=== PATIENT | female | born 1995 | race Caucasian/White ===

== ENCOUNTER 2016-09-22 10:41 | Outpatient (CLI) | payer MEDICAID ==
[~2016-09-22] VITALS: Ht 154.9 cm; Wt 103.1 kg
[~2016-09-22 10:41] MED LIST: BACTDS PO; HYDR-3498 PO; ONDA4TAB8 PO
[2016-09-22] MEDS ORDERED: PRENAT PO (11:13)
[2016-09-22 11:14] VITALS: Ht 154.9 cm; Wt 103.1 kg
--- NOTE | 2016-09-22 11:51 | RADRPT ---
PROCEDURE: US biophysical profile. CLINICAL INDICATION: well-being. TECHNIQUE: Multiple sonographic images of the uterus were obtained. The images were revi ewed on a PACS workstation. COMPARISON: No prior studies are available for comparison. FINDINGS: There is a single live intrauterine gestation. heart rate is 137 beats per minute. The position is cephalic. The placenta is anterior, grade 1. The ALLEN is 15.6 cm. Breathing Movement: 2 Gross Body Movement: 2 Tone: 2 Qualitative Amniotic Fluid Volume: 2 TOTAL: 8 IMPRESSION: 1. Single viable intrauterine gestation. 2. Biophysical profile = 03/22. 3. ALLEN = 15.6 cm. RPTAT: QQ .Sol Maria MD, MD Date Time Electronically viewed and signed by .Sol Maria MD, MD on 09/22/2016 11:50 .N/
== END 2016-09-22 12:20 | disposition home or self-care (01) ==
LOC: OBT 10:41 → L-D 10:42 → OBT 12:20
PROVIDERS: ATTEND Obstetrics & Gynecology
DX: O36.8130 Decreased fetal movements, third trimester, not applicable or unspecified (principal); Z3A.00 Weeks of gestation of pregnancy not specified
CPT/HCPCS: 36415; 76818; Z7500; G0463

== ENCOUNTER 2016-11-17 22:08 | Outpatient (CLI) | payer MEDICAID ==
[~2016-11-17] VITALS: Ht 152.4 cm; Wt 113.9 kg
[~2016-11-17 22:08] MED LIST changes: -BACTDS PO; -HYDR-3498 PO; -ONDA4TAB8 PO; +PRENAT PO
[2016-11-17 22:31] VITALS: BP 130/70; PULSE 112; RESP 18; Ht 152.4 cm; Wt 113.9 kg
[2016-11-17] MEDS ORDERED: GUAIFENESIN/CODEINE 5ML CUP PO ONE (23:30)
[2016-11-17] MEDS ORDERED: ACETAMINOPHEN 500 MG TAB PO ONE (23:38)
[2016-11-17] MEDS ORDERED: ALBUTEROL 0.083% (NEB) 2.5 MG/3 ML AMP HHN ONE (23:38)
[2016-11-17] MEDS ORDERED: ALBUTEROL 0.5% (NEB) 2.5 MG/0.5 ML AMP INH SCH (23:45)
--- NOTE | 2016-11-18 01:45 | RADRPT ---
PROCEDURE: ULTRASOUND BIOPHYSICAL PROFILE CLINICAL INDICATION: 21-year-old female with spotting for viability. TECHNIQUE: Multiple sonographic images were obtained in order to perform a biophysical profile The images were reviewed on a PACS workstation. COMPARISON: Ultrasound biophysical profile September 22, 2016. FINDINGS: There is a single viable intrauterine gestation. There is a vertex presentation. Cardiac activity i s present at 148 beats per minute. The placenta is anterior. The results of the biophysical profile are as follows: breathing movement = 2/2 Gross body movement = 2/2 tone = 2/2 Qualitative amniotic fluid volume = 2/2 Amniotic fluid index equals 9.1 cm. This yields a biophysical profile score of 8/8. IMPRESSION: Biophysical profile score is 8/8. .Harjinder Walker MD, MD Date Time Electronically viewed and signed by .Harjinder Walker MD, MD on 11/18/2016 01:45 .M/
--- NOTE | 2016-11-18 03:37 | TRIAGE ---
OB Triage Datetime Report Generated by CPN: 11/18/2016 03:37 Datetime: 11/18/2016 01:54 Vaginal Exam Dilatation (cms): 1.5 Effacement (%): 70 Station: -3 Exam By: BILLIE Vaginal Bleeding: None Cervix, Consistency: Moderate Cervix, Position: Midposition Datetime: 11/18/2016 01:00 Stage of : OB Triage Labor Evaluation Frequency: IRREG Monitor Mode: External Duration (sec)2399: 50-70 Quality: Mild Pattern: Normal: <= 5 Contractions in 10 Minutes Resting Tone [place]: Relaxed Heart Rate FHR Baseline Rate: 140 Monitor Mode: External US Variability: Moderate 6-25 bpm Accelerations: 15X15 Decelerations: None Category: Category I Datetime: 11/18/2016 00:00 Stage of : OB Triage Labor Evaluation Frequency: IRREG Monitor Mode: External Duration (sec)2399: 50-70 Quality: Mild Pattern: Normal: <= 5 Contractions in 10 Minutes Resting Tone [place]: Relaxed Heart Rate FHR Baseline Rate: 140 Monitor Mode: External US Variability: Moderate 6-25 bpm Accelerations: 15X15 Decelerations: None Category: Category I Datetime: 11/17/2016 23:00 Stage of : OB Triage Temperature Route: Oral Labor Evaluation Frequency: IRREG Monitor Mode: External Duration (sec)2399: 50-70 Quality: Mild Pattern: Normal: <= 5 Contractions in 10 Minutes Resting Tone [place]: Relaxed Heart Rate FHR Baseline Rate: 140 Monitor Mode: External US Variability: Moderate 6-25 bpm Accelerations: 15X15 Decelerations: None Category: Category I Pain Assessment Pain Scale: 3 Pain Presence: Intermittent Pain Type: Cramping Pain Location: Abdomen Pain Relief Measures: Comfort Measures Datetime: 11/17/2016 22:42 Vaginal Exam Dilatation (cms): 1.5 Effacement (%): 80 Station: -3 Exam By: BILLIE Vaginal Bleeding: None Cervix, Consistency: Soft Cervix, Position: Midposition Datetime: 11/17/2016 22:38 Time of Arrival: 11/17/2016 22:09 EGA: 37.2 Arrived By: Ambulatory Arrived From: Home Chief Complaint: SPOTTING AND CRAMPING SINCE 11/16/16 AT 1000 Movement: Present Contractions: Irregular Contractions: Q HR Rupture of Membranes: Denies Vaginal Discharge: Denies Recent Sexual Intercouse: Denies Abdominal Trauma: Not Applicable Time Provider Notified: 11/17/2016 23:20 Provider Notified: CASSIE Initial Plan: EFM, ASSESSMENT, CALL MD FOR ORDERS Datetime: 11/17/2016 22:30 Assessment Type: Triage Maternal Assessment Level of Consciousness: Fully Conscious DTR's/Clonus: DTRs 2+; No Clonus Headache: Denies Blurred Vision: No Respiratory Effort: Unlabored; Regular Rhythm; Equal Expansion Breath Sounds, Left: COUGH Nausea/Vomiting: Denies RUQ Epigastric Pain: Denies Facial Edema: None Fall Risk Assessment History of Falling: (0) No Secondary Diagnosis: (0) No Ambulatory Aid: (0) Bedrest/Nurse Assist IV Therapy: (0) No Gait: (0) Normal/Bedrest/Immobile Mental Status: (0) Oriented to Own Ability Fall Score: 0 Fall Risk Score Definition: No Risk: No action required Datetime: 09/22/2016 12:10 Stage of : OB Triage Datetime: 09/22/2016 11:40 EGA: 29.2 Datetime: 09/22/2016 11:15 Stage of : OB Triage Datetime: 09/22/2016 11:01 Stage of : OB Triage Assessment Type: Triage EGA: 29.2 Maternal Assessment Level of Consciousness: Fully Conscious DTR's/Clonus: DTRs 2+; No Clonus Headache: Denies Blurred Vision: No Respiratory Effort: Unlabored; Regular Rhythm; Equal Expansion Breath Sounds, Left: Clear and Equal Breath Sounds, Right: Clear and Equal Nausea/Vomiting: Denies RUQ Epigastric Pain: Denies Lower Extremities Edema: None Degree: None Upper Extremities Edema: None Degree: None Facial Edema: None Temperature Route: Axillary Fall Risk Assessment History of Falling: (0) No Secondary Diagnosis: (0) No Ambulatory Aid: (0) Bedrest/Nurse Assist IV Therapy: (0) No Gait: (0) Normal/Bedrest/Immobile Mental Status: (0) Oriented to Own Ability Fall Score: 0 Fall Risk Score Definition: No Risk: No action required Labor Evaluation Frequency: 0 Monitor Mode: External Pattern: Normal: <= 5 Contractions in 10 Minutes Resting Tone [place]: Relaxed Heart Rate FHR Baseline Rate: 155 Monitor Mode: External US Variability: Moderate 6-25 bpm Decelerations: None Category: Category I Pain Assessment Pain Scale: 0 Pain Presence: None/Denies Pain Type: N/A Pain Goal: 3 Pain Relief Measures: Comfort Measures Datetime: 09/22/2016 11:00 Time of Arrival: 09/22/2016 10:38 Arrived By: Ambulatory Arrived From: Home Chief Complaint: C/O DFM X 3 DAYS, DENIES UC'S, BLEEDING OR LEAKING OF FLUID Movement: Decreased Contractions: Denies/Absent Rupture of Membranes: Denies Vaginal Bleeding: None Vaginal Discharge: Denies Recent Sexual Intercouse: Denies Abdominal Trauma: Not Applicable Patient Complaints: None Time Provider Notified: 09/22/2016 11:15 Provider Notified: TABATHA Initial Plan: MONITOR, BPP/ALLEN
--- NOTE | 2016-11-18 06:57 | QN ---
Documentation Comment 21-year-old with IUP at 37 weeks and 2 days here today with complaint of cramping. She was noted to have 1.5 cm cervical dilation 80% effaced -3. heart tracing was category 1. She denied any leaking of fluid, vaginal bleeding or leaking of fluid. She reported only small spotting. She denied any complication during her antepartum course. Physical examination: General appearance, alert and oriented 4 patient does not appear to be in any acute distress. Abdomen: Soft, gravid, nontender, no rebound tenderness, no guarding Fundal height consistent with gestational age: NST: Category 1 BPP: 8/8 Patient ambulated and observed for about 2 hour. She did not show any cervical change PROCEDURE: ULTRASOUND BIOPHYSICAL PROFILE CLINICAL INDICATION: 21-year-old female with spotting for viability. TECHNIQUE: Multiple sonographic images were obtained in order to perform a biophysical profile The images were reviewed on a PACS workstation. COMPARISON: Ultrasound biophysical profile September 22, 2016. FINDINGS: There is a single viable intrauterine gestation. There is a vertex presentation. Cardiac activity is present at 148 beats per minute. The placenta is anterior. The results of the biophysical profile are as follows: breathing movement = 2/2 Gross body movement = 2/2 tone = 2/2 Qualitative amniotic fluid volume = 2/2 Amniotic fluid index equals 9.1 cm. This yields a biophysical profile score of 8/8. IMPRESSION: Assessment: IUP at 37 weeks and 2 days Cramping, false labor pain next heart tracing category 1 BPP reassuring Plan:Patient be discharged home Strict labor precaution and kick count discussed with the patient Follow-up with her OB clinic in 1-2 days after discharge from the hospital recommended. TIARA MATTHEWS MD Nov 18, 2016 06:57
== END 2016-11-18 02:14 | disposition home or self-care (01) ==
LOC: OBT 22:08 → L-D 22:09 → OBT 11-18 02:14
PROVIDERS: ATTEND Obstetrics & Gynecology
DX: O26.853 Spotting complicating pregnancy, third trimester (principal); O47.03 False labor before 37 completed weeks of gestation, third trimester; Z3A.37 37 weeks gestation of pregnancy
CPT/HCPCS: 76818; 94664; Z7500; Z7610; G0463

== ENCOUNTER 2016-11-19 16:03 | Outpatient (CLI) | payer MEDICAID ==
[~2016-11-19] VITALS: Ht 152.4 cm; Wt 111.8 kg
[2016-11-19 16:08] VITALS: BP 137/85; PULSE 104; RESP 18
--- NOTE | 2016-11-19 17:31 | RADRPT ---
PROCEDURE: US OB. CLINICAL INDICATION: Size and dates , hypertension TECHNIQUE: Multiple sonographic images of the pelvis and gravid uterus were obtained. The images were reviewed on a PACS workstation. COMPARISON: 11/18/2016 FINDINGS: There is a single viable intrauterine gestation. Cardiac activity is present with 152 beats per min omega. There is a vertex presentation. The placenta is anterior. There is no evidence for an abruption or placenta previa. Measurements were made in order to determine age. The results are as follows: BPD =8.9 cm HC =31.9 cm AC =33.6 cm FL =7.1 cm Estimated gestational age of approximately 36 weeks and 3 days based on ultrasound measurements. Clinical age: 37 weeks and 4 days. The estimated date of delivery is 12/14/16, based on ultrasound measurements. The EFW = 3055 g, 40.8%, based on LMP age. RPTAT: AA IMPRESSION: Single viable intrauterine gestation of approximately 36 weeks and 3 days based on ultrasound measu rements. .Joseph Cano MD, Date Time Electronically viewed and signed by .Joseph Cano MD, on 11/19/2016 17:31 .S/
[2016-11-19 17:42] LABS: ADD SCAN DIFF NO
[2016-11-19 17:46] LABS: ADD UMIC YES; URINE BILIRUBIN (Dip) NEGATIVE (NEGATIVE); URINE BLOOD (Dip) NEGATIVE (NEGATIVE); URINE COLOR LT. YELLOW (YELLOW); URINE GLUCOSE (Dip) NEGATIVE (NEGATIVE); URINE KETONES (Dip) NEGATIVE (NEGATIVE); URINE LEUKOCYTE ESTERASE (Dip) TRACE (NEGATIVE); URINE NITRITE (Dip) NEGATIVE (NEGATIVE); URINE TOTAL PROTEIN (Dip) NEGATIVE (NEGATIVE); URINE UROBILINOGEN (Dip) 0.2 E.U./dL (0.1-1.0)
[2016-11-19 17:51] LABS: BASOPHILS % 0.3 % (0.0-2.0); EOSINOPHILS # 0.4 10^3/ul (0.0-0.5); EOSINOPHILS % 5.6 % (0.0-7.0); HEMATOCRIT 33.2 % (37.0-47.0); HEMOGLOBIN 11.6 g/dl (12.0-16.0); LYMPHOCYTES # 1.6 10^3/ul (0.8-2.9); LYMPHOCYTES % 22.8 % (15.0-51.0); MEAN CORPUSCULAR HEMOGLOBIN 30.2 pg (29.0-33.0); MEAN CORPUSCULAR HGB CONC 34.9 g/dl (32.0-37.0); MEAN CORPUSCULAR VOLUME 86.5 fl (82.0-101.0); MEAN PLATELET VOLUME 10.2 fl (7.4-10.4); MONOCYTE # 0.6 10^3/ul (0.3-0.9); MONOCYTES % 8.5 % (0.0-11.0); NEUTROPHIL # 4.4 10^3/ul (1.6-7.5); PLATELET COUNT 228 10^3/UL (140-415); RED BLOOD COUNT 3.84 10^6/ul (4.20-5.40); RED CELL DISTRIBUTION WIDTH 13.3 % (11.5-14.5); WHITE BLOOD COUNT 7.1 10^3/ul (4.8-10.8)
[2016-11-19 18:02] LABS: ALBUMIN 3.2 g/dl (3.3-4.9); POTASSIUM 3.4 mmol/L (3.5-5.1)
[2016-11-19 18:03] LABS: INR 0.99; PROTIME 13.1 Sec (12.2-14.2)
[2016-11-19 18:03] LABS: BACTERIA,URINE FEW; URINE RBCS 0-2 /HPF (0)
[2016-11-19 18:04] LABS: CREATININE 0.48 mg/dl (0.44-1.00); PARTIAL THROMBOPLASTIN TIME 27.8 Sec (25.0-35.0)
[2016-11-19 18:05] LABS: ALBUMIN/GLOBULIN RATIO 0.94; BILIRUBIN,INDIRECT 0.6 mg/dl (0-1.1); BILIRUBIN,TOTAL 0.6 mg/dl (0.2-1.3); CALCIUM 9.4 mg/dl (8.4-10.2); TOTAL PROTEIN 6.6 g/dl (6.1-8.1); URIC ACID 4.4 mg/dl (3.1-7.9)
--- NOTE | 2016-11-19 18:10 | RADRPT ---
PROCEDURE: US OB biophysical profile. CLINICAL INDICATION: decreased movements, hypertension TECHNIQUE: Multiple sonographic images of the pelvis were obtained. The images were reviewed on a PACS workstation. COMPARISON: 11/18/2016 FINDINGS: There is a single viable intrauterine gestation. Cardiac activity is present with 152 beats per min [place]. There is a vertex presentation. The placenta is anterior. There is no evidence of placental abruption. There is a normal amount of amniotic fluid with an ALLEN = 11.3 cm. Biophysical profile: movement 2/2 tone 2/2. breathing 2/2 ALLEN 2/2 Total 03/22 RPTAT: AA . IMPRESSION: Normal biophysical profile. . .Joseph Cano MD, MD Date Time Electronically viewed and signed by .Joseph Cano MD, MD on 11/19/2016 18:10 .S/
--- NOTE | 2016-11-19 18:57 | TRIAGE ---
OB Triage Datetime Report Generated by CPN: 11/19/2016 18:56 Datetime: 11/19/2016 18:00 Frequency: 0 Monitor Mode: External Pattern: Normal: <= 5 Contractions in 10 Minutes Resting Tone [place]: Relaxed FHR Baseline Rate: 155 Monitor Mode: External US FHR Baseline Changes: No Baseline Change Variability: Moderate 6-25 bpm Accelerations: 15X15 Decelerations: None Category: Category I Pain Scale: 0 Pain Presence: None/Denies Pain Type: N/A Datetime: 11/19/2016 17:00 Frequency: 0 Pattern: Normal: <= 5 Contractions in 10 Minutes Resting Tone [place]: Relaxed FHR Baseline Rate: 145 Monitor Mode: External US FHR Baseline Changes: No Baseline Change Variability: Moderate 6-25 bpm Accelerations: 15X15 Decelerations: None Category: Category I Pain Scale: 0 Pain Presence: None/Denies Pain Type: N/A Datetime: 11/19/2016 16:30 Assessment Type: Triage Datetime: 11/19/2016 16:20 Assessment Type: Triage Level of Consciousness: Fully Conscious DTR's/Clonus: DTRs 2+; No Clonus Headache: Denies Blurred Vision: No Respiratory Effort: Unlabored; Regular Rhythm Breath Sounds, Left: Clear and Equal Breath Sounds, Right: Clear and Equal Nausea/Vomiting: Denies RUQ Epigastric Pain: Denies Lower Extremities Edema: Bilateral Lower Extremities Degree: 2+ Upper Extremities Edema: None Degree: None Facial Edema: None History of Falling: (0) No Secondary Diagnosis: (0) No Ambulatory Aid: (0) Bedrest/Nurse Assist IV Therapy: (0) No Gait: (0) Normal/Bedrest/Immobile Mental Status: (0) Oriented to Own Ability Fall Score: 0 Fall Risk Score Definition: No Risk: No action required Datetime: 11/19/2016 16:15 Pain Scale: 0 Pain Presence: None/Denies Pain Type: N/A Datetime: 11/19/2016 16:06 Time of Arrival: 11/19/2016 16:05 EGA: 37.4 Arrived By: Ambulatory Arrived From: Dr. Farr Chief Complaint: PT PRESENTS TO TRIAGE FROM CLINIC FOR EVALUATION OF PIH Movement: Present Contractions: Denies/Absent Rupture of Membranes: Denies Vaginal Bleeding: None Vaginal Discharge: Denies Recent Sexual Intercouse: Denies Abdominal Trauma: Not Applicable Patient Complaints: None Time Provider Notified: 11/19/2016 16:22 Provider Notified: TABATHA Initial Plan: EFM/PIH WORKUP/BPP/EFW Datetime: 11/17/2016 22:38 EGA: 37.2 Datetime: 11/17/2016 22:30 Fall Score: 0 Fall Risk Score Definition: No Risk: No action required Datetime: 09/22/2016 11:40 EGA: 29.2 Datetime: 09/22/2016 11:01 EGA: 29.2 Fall Score: 0 Fall Risk Score Definition: No Risk: No action required
--- NOTE | 2016-12-19 19:38 | DS ---
Date/Time of Note Date/Time of Note DATE: 12/19/16 TIME: 19:34 Discharge Summary Admission/Discharge Info Admit Date/Time 11/19/16 Discharge Date/Time 11/19/16 Final Diagnosis r/oPIH Patient Condition: Good Procedures pih workup Hx of Present Illness suspected plh Hospital Course good Home Meds Reported Medications Multivit/Min/Fol Ac/Iron/Pren* ( S*) 1 Tab Tab, 1 TAB PO DAILY, TAB 09/22/16 JAVY MAYS MD December 19, 2016 19:38
--- NOTE | 2016-12-28 20:01 | QN ---
Documentation Comment near term suspected plh JAVY MAYS MD December 28, 2016 20:01
== END 2016-11-19 18:38 | disposition home or self-care (01) ==
LOC: OBT 16:03 → L-D 16:04 → OBT 18:38
PROVIDERS: ATTEND Obstetrics & Gynecology
DX: O26.893 Other specified pregnancy related conditions, third trimester (principal); O36.8130 Decreased fetal movements, third trimester, not applicable or unspecified; Z3A.37 37 weeks gestation of pregnancy
CPT/HCPCS: 36415; 76815; 76818; 80053; 81001; 84560; 85025; 85384; 85610; 85730; Z7500; 81003; G0463

== ENCOUNTER 2016-11-25 17:34 | Outpatient (CLI) | payer MEDICAID ==
[2016-11-25 18:14] LABS: ADD SCAN DIFF NO
[2016-11-25 18:16] LABS: BASOPHILS % 0.1 % (0.0-2.0); EOSINOPHILS # 0.1 10^3/ul (0.0-0.5); EOSINOPHILS % 1.5 % (0.0-7.0); HEMATOCRIT 34.6 % (37.0-47.0); HEMOGLOBIN 12.1 g/dl (12.0-16.0); LYMPHOCYTES # 2.1 10^3/ul (0.8-2.9); LYMPHOCYTES % 22.1 % (15.0-51.0); MEAN CORPUSCULAR HEMOGLOBIN 30.2 pg (29.0-33.0); MEAN CORPUSCULAR VOLUME 86.3 fl (82.0-101.0); MEAN PLATELET VOLUME 9.9 fl (7.4-10.4); MONOCYTE # 0.5 10^3/ul (0.3-0.9); MONOCYTES % 5.7 % (0.0-11.0); NEUTROPHIL # 6.6 10^3/ul (1.6-7.5); NEUTROPHILS % 69.9 % (39.0-77.0); PLATELET COUNT 266 10^3/UL (140-415); RED BLOOD COUNT 4.01 10^6/ul (4.20-5.40); RED CELL DISTRIBUTION WIDTH 13.2 % (11.5-14.5); WHITE BLOOD COUNT 9.4 10^3/ul (4.8-10.8)
[2016-11-25 18:26] LABS: ALBUMIN 3.2 g/dl (3.3-4.9)
[2016-11-25 18:27] LABS: POTASSIUM 3.3 mmol/L (3.5-5.1)
[2016-11-25 18:29] LABS: ALBUMIN/GLOBULIN RATIO 0.91; BILIRUBIN,INDIRECT 0.5 mg/dl (0-1.1); BILIRUBIN,TOTAL 0.5 mg/dl (0.2-1.3); CREATININE 0.63 mg/dl (0.44-1.00); TOTAL PROTEIN 6.7 g/dl (6.1-8.1)
[2016-11-25 18:30] LABS: CALCIUM 9.3 mg/dl (8.4-10.2)
--- NOTE | 2016-11-25 18:37 | RADRPT ---
PROCEDURE: US OB. CLINICAL INDICATION: induced hypertension. TECHNIQUE: Multiple sonographic images of the uterus were obtained. The images were revi ewed on a PACS workstation. COMPARISON: No prior studies are available for comparison. FINDINGS: There is a single live intrauterine gestation. heart rate is 144 beats per minute. Measurements were made in order to determine age. The results are as follows: BPD = 8.94 cm. HC = 32.07 cm. AC = 35.30 cm. FL = 7.44 cm. Estimated weight is 3428 +/- 514 grams. LMP growth percentile is 60 %. Menstrual age by ultrasound dates is 37 weeks 3 days. The estimated date of delivery is 12/13/2016. Position is cephalic and placenta is anterior grade II. There is no evidence for an abruption or [place] previa. IMPRESSION: 1. Single live intrauterine gestation of 37 weeks 3 days menstrual age by ultrasound dates. 2. The estimated date of delivery is 12/13/2016. RPTAT: QQ .Christiano Aranda MD, Date Time Electronically viewed and signed by .Christiano Aranda MD, on 11/25/2016 18:36 .R/
--- NOTE | 2016-11-25 18:37 | RADRPT ---
PROCEDURE: US biophysical profile. CLINICAL INDICATION: Decreased motion. induced hypertension. TECHNIQUE: Multiple sonographic images of the uterus were obtained. The images were revi ewed on a PACS workstation. COMPARISON: 11/19/2016. FINDINGS: There is a single live intrauterine gestation. heart rate is 152 beats per minute. The position is cephalic. The placenta is anterior grade II with no abruption or previa. The ALLEN is 13.1 cm. (Normal = 5-20 cm.) Breathing Movement: 2 Gross Body Movement: 2 Tone: 2 Qualitative Amniotic Fluid Volume: 2 TOTAL: 8 IMPRESSION: 1. The biophysical score is 8/8. RPTAT: QQ .Christiano Aranda MD, MD Date Time Electronically viewed and signed by .Christiano Aranda MD, on 11/25/2016 18:37 .R/
[2016-11-25 18:38] LABS: URINE COLOR YELLOW (YELLOW); URINE GLUCOSE (Dip) NEGATIVE (NEGATIVE); URINE TOTAL PROTEIN (Dip) 2+ (NEGATIVE)
[2016-11-25 18:39] LABS: ADD UMIC YES; URINE BILIRUBIN (Dip) 1+ (NEGATIVE); URINE BLOOD (Dip) NEGATIVE (NEGATIVE); URINE KETONES (Dip) TRACE (NEGATIVE); URINE LEUKOCYTE ESTERASE (Dip) NEGATIVE (NEGATIVE); URINE NITRITE (Dip) NEGATIVE (NEGATIVE); URINE UROBILINOGEN (Dip) 1.0 E.U./dL (0.1-1.0)
[2016-11-25 18:42] LABS: BACTERIA,URINE FEW; ICTOTEST NEGATIVE (NEGATIVE); MUCUS,URINE MODERATE; SQUAMOUS EPITHELIAL CELL,UR MODERATE; URINE RBCS 0-2 /HPF (0)
--- NOTE | 2016-11-25 21:05 | PN ---
Date/Time of Note Date/Time of Note DATE: 11/25/16 TIME: 20:56 OB Subjective Subjective Subjective sent from clinic for PIH work up since BP at clinic high and poss induction if necessary no subjective symptoms OB Objective Objective Objective BP 122/68, 133/74, 134/80 no significant elevation of BP compare to Bp at clinic PIH lab all wnl except urine protein ++ ext =+ pretibial edema efw 3428 placenta grade II teressa 13.1 bpp 8/8 nst reactive OB Assessment/Plan Other Assessment: IUP 38w3d R/o PIH Other plan: 24hr urine protein RTH tomorrow ANAID RAZO MD Nov 25, 2016 21:05
--- NOTE | 2016-11-25 21:19 | TRIAGE ---
OB Triage Datetime Report Generated by CPN: 11/25/2016 21:19 Datetime: 11/25/2016 20:00 Labor Evaluation Frequency: 0 Monitor Mode: External Pattern: Normal: <= 5 Contractions in 10 Minutes Heart Rate FHR Baseline Rate: 155 Monitor Mode: External US FHR Baseline Changes: No Baseline Change Variability: Moderate 6-25 bpm Accelerations: 15X15 Decelerations: None Category: Category I Datetime: 11/25/2016 19:33 Assessment Type: Triage Maternal Assessment Level of Consciousness: Fully Conscious DTR's/Clonus: DTRs 2+; No Clonus Headache: Denies Blurred Vision: No Respiratory Effort: Unlabored; Regular Rhythm; Equal Expansion Breath Sounds, Left: Clear and Equal Breath Sounds, Right: Clear and Equal Nausea/Vomiting: Denies RUQ Epigastric Pain: Denies Facial Edema: None Fall Risk Assessment History of Falling: (0) No Secondary Diagnosis: (0) No Ambulatory Aid: (0) Bedrest/Nurse Assist IV Therapy: (0) No Gait: (0) Normal/Bedrest/Immobile Mental Status: (0) Oriented to Own Ability Fall Score: 0 Fall Risk Score Definition: No Risk: No action required Datetime: 11/25/2016 19:12 Comments: PATEINT REPOSITONED FROM SIDE LYING TO SEMI- FOWLERS Datetime: 11/25/2016 19:11 Comments: LOSS OF CONTACT Datetime: 11/25/2016 18:40 Stage of : OB Triage Labor Evaluation Frequency: 0 Monitor Mode: External Resting Tone [place]: Relaxed Heart Rate FHR Baseline Rate: 155 Variability: Moderate 6-25 bpm Accelerations: 15X15 Decelerations: None Category: Category I Pain Presence: None/Denies Pain Type: N/A Datetime: 11/25/2016 18:38 Time of Arrival: 11/25/2016 17:20 EGA: 38.3 Arrived By: Ambulatory Arrived From: Dr. Farr Chief Complaint: SENT FROM CLINIC FOR PIH WORK UP Movement: Present Rupture of Membranes: Denies Vaginal Bleeding: None Vaginal Discharge: Denies Recent Sexual Intercouse: Denies Abdominal Trauma: Not Applicable Patient Complaints: None Additional Patient Complaints: PIH WORK UP, BPP/AFR/, EFW Time Provider Notified: 11/25/2016 19:01 Provider Notified: DR. MAYS Initial Plan: EFMX2, CMP, URIC ACID, UA CMP, EFW, BPP/ALLEN Datetime: 11/25/2016 17:30 Stage of : OB Triage Assessment Type: Triage Maternal Assessment Level of Consciousness: Fully Conscious DTR's/Clonus: DTRs 2+; No Clonus Headache: Denies Blurred Vision: No Respiratory Effort: Unlabored; Regular Rhythm; Equal Expansion Breath Sounds, Left: Clear and Equal Breath Sounds, Right: Clear and Equal Nausea/Vomiting: Denies RUQ Epigastric Pain: Denies Facial Edema: None Temperature Route: Axillary Fall Risk Assessment History of Falling: (0) No Secondary Diagnosis: (0) No Ambulatory Aid: (0) Bedrest/Nurse Assist IV Therapy: (0) No Gait: (0) Normal/Bedrest/Immobile Mental Status: (0) Oriented to Own Ability Fall Score: 0 Fall Risk Score Definition: No Risk: No action required Monitor Mode: External Heart Rate FHR Baseline Rate: 155 Monitor Mode: External US Variability: Moderate 6-25 bpm Accelerations: 15X15 Decelerations: None Category: Category I Pain Assessment Pain Scale: 0 Pain Presence: None/Denies Pain Type: N/A Datetime: 11/19/2016 16:20 Fall Score: 0 Fall Risk Score Definition: No Risk: No action required Datetime: 11/19/2016 16:06 EGA: 37.4 Datetime: 11/17/2016 22:38 EGA: 37.2 Datetime: 11/17/2016 22:30 Fall Score: 0 Fall Risk Score Definition: No Risk: No action required Datetime: 09/22/2016 11:40 EGA: 29.2 Datetime: 09/22/2016 11:01 EGA: 29.2 Fall Score: 0 Fall Risk Score Definition: No Risk: No action required
== END 2016-11-25 20:40 | disposition home or self-care (01) ==
LOC: L-D 17:34 → OBT 17:34
PROVIDERS: ATTEND Obstetrics & Gynecology
DX: O13.3 Gestational [pregnancy-induced] hypertension without significant proteinuria, third trimester (principal); Z3A.38 38 weeks gestation of pregnancy
CPT/HCPCS: 36415; 76815; 76818; 80053; 81001; 84560; 85025; Z7500; 81003; G0463

== ENCOUNTER 2016-11-27 10:34 | Inpatient (IN) | payer MEDICAID ==
[~2016-11-27] VITALS: Ht 152.4 cm; Wt 110.8 kg
[2016-11-27 11:11] VITALS: BP 125/72; PULSE 81; RESP 18
--- NOTE | 2016-11-27 11:37 | HP ---
Date/Time of Note Date/Time of Note DATE: 11/27/16 TIME: 11:29 OB - History Hx of Present Free Text/Dictation 21yo G1 at 38+5 with elevated BP at last clinic visit on 11/25, now returning to drop off 24hr urine collection. Pt doing well. Reports normal FM, denies LOF, VB , UCs, headache, visual changes or RUQ pain. Estimated Due Date: Dec 06, 2016 : 1 Care: Good Care Abnormal Ultrasound Findings: [place] noted on US Obstetrical Complications: Pre-eclampsia Medical Complications: Respiratory (Asthma- last inhaler use 1wk ago) Past Family/Social History * Past Medical, Surgical, Family and Obstetric Histories reviewed from chart. Blood Type: O+ Rubella: immune RPR/VDRL: Negative GBS Status: Negative HBsAG: Negative OB Admission Exam Vital Signs Vital Signs Vital Signs Date Time Temp Pulse Resp B/P Pulse Ox O2 Delivery O2 Flow Rate FiO2 11/27/16 11:11 98.4 81 18 125/72 Room Air BP 124/73, 128/77, 150/86 Physical Exam HEENT: WNL Heart: Rhythm Normal Lungs: Clear Abdomen: WNL (gravid, nontender) Extremities: Edema (1+) Reflexes: Normal Membranes: Intact Heart Rate: 140's Accelerations: Accelerations Present Decelerations: No Decelerations Varibility: Moderate Contractions on Admission: None OB Assessment/Plan Other Assessment: Preeclampsia without severe features Term >37wks GA Reassuring FWB Plan: Induction Other plan: 1)PreEclampsia- Given pt has BP >140/90 on two occasions more than 4hrs apart along with 530mg protein on 24hr urine collection, pt rules in for PreEclampsia. Remains asymptomatic. Will repeat PreE labs on admission, although based on BPs, sxs and prior labs, at this time pt does not meet criteria for severe. Since GA is >37wks, recommend admission for IOL to which pt agrees. Will defer Magnesium Sulfate for seizure ppx now, however discussed with pt that should she meet criteria for preeclampsia with severe features, Magnesium Sulfate would be strongly recommended given increased seizure risk. Pt amenable to Magnesium Sulfate if needed. 2)FWB- Reactive NST. CEFM 3)ID- BOWI. GBS negative. Pt without indications for GBS ppx. 4)Pain- Reviewed options for pain management. Pt will decide as labor progresses 5)Asthma- Albuterol MDI prn Questions answered to pt and her partner's satisfaction. REYES PAZ MD Nov 27, 2016 11:37
[2016-11-27 11:49] LABS: ADD UMIC YES; URINE BILIRUBIN (Dip) NEGATIVE (NEGATIVE); URINE BLOOD (Dip) NEGATIVE (NEGATIVE); URINE COLOR YELLOW (YELLOW); URINE GLUCOSE (Dip) NEGATIVE (NEGATIVE); URINE KETONES (Dip) NEGATIVE (NEGATIVE); URINE LEUKOCYTE ESTERASE (Dip) TRACE (NEGATIVE); URINE NITRITE (Dip) NEGATIVE (NEGATIVE); URINE TOTAL PROTEIN (Dip) 1+ (NEGATIVE); URINE UROBILINOGEN (Dip) 1.0 E.U./dL (0.1-1.0)
[2016-11-27 12:12] LABS: URINE RBCS NONE SEEN /HPF (0)
[2016-11-27 12:13] LABS: BACTERIA,URINE FEW; SQUAMOUS EPITHELIAL CELL,UR FEW
[2016-11-27 13:28] LABS: SCRET 0.47 mg/dl (0.44-1.00)
[2016-11-27] MEDS ORDERED: OXYTOCIN 30 UNITS/LR 500 ML IV SCH (14:00)
[2016-11-27] MEDS ORDERED: BUTORPHANOL 2 MG INJ IV PRN (14:00)
[2016-11-27] MEDS ORDERED: LIDOCAINE 1% (MPF) 30 ML INJ INJ PRN (14:00)
[2016-11-27] MEDS ORDERED: CARBOPROST 250 MCG INJ IM PRN (14:00)
[2016-11-27] MEDS ORDERED: METHYLERGONOVINE 0.2 MG INJ IM PRN (14:00)
[2016-11-27] MEDS ORDERED: MISOPROSTOL 200 MCG TAB PR PRN (14:00)
[2016-11-27] MEDS ORDERED: IBUPROFEN 600 MG TAB PO PRN (14:00)
[2016-11-27] MEDS ORDERED: OXYTOCIN 30 UNITS/LR 500 ML IV PRN (14:00)
[2016-11-27] MEDS ORDERED: DINOPROSTONE 10 MG VAG SUPP VAG ONE ×2 (14:00→14:30)
--- NOTE | 2016-11-27 14:25 | TRIAGE ---
OB Triage Datetime Report Generated by CPN: 11/27/2016 14:25 Datetime: 11/27/2016 14:14 Labor Evaluation Frequency: 0 Monitor Mode: External Pattern: Normal: <= 5 Contractions in 10 Minutes Resting Tone Modale: Relaxed Heart Rate FHR Baseline Rate: 145 FHR Baseline Changes: No Baseline Change Variability: Moderate 6-25 bpm Accelerations: 15X15 Datetime: 11/27/2016 14:00 Labor Evaluation Frequency: 0 Monitor Mode: External Quality: Mild Pattern: Normal: <= 5 Contractions in 10 Minutes Resting Tone Modale: Relaxed Heart Rate FHR Baseline Rate: 145 FHR Baseline Changes: No Baseline Change Variability: Moderate 6-25 bpm Accelerations: 15X15 Decelerations: None Category: Category I Datetime: 11/27/2016 13:00 Labor Evaluation Frequency: 0 Monitor Mode: External Pattern: Normal: <= 5 Contractions in 10 Minutes Resting Tone Modale: Relaxed Heart Rate FHR Baseline Rate: 145 FHR Baseline Changes: No Baseline Change Variability: Moderate 6-25 bpm Accelerations: 15X15 Decelerations: None Datetime: 11/27/2016 12:00 Labor Evaluation Frequency: 0 Monitor Mode: External Quality: Mild Pattern: Normal: <= 5 Contractions in 10 Minutes Resting Tone Modale: Relaxed Heart Rate FHR Baseline Rate: 145 FHR Baseline Changes: No Baseline Change Variability: Moderate 6-25 bpm Accelerations: 15X15 Decelerations: None Category: Category I Pain Assessment Pain Scale: 0 Pain Presence: None/Denies Pain Type: N/A Datetime: 11/27/2016 11:03 Time of Arrival: 11/27/2016 10:30 EGA: 38.5 Arrived By: Ambulatory Arrived From: Home Chief Complaint: DROP OFF 24 HOUR URINE COLLECTION Movement: Present Contractions: Denies/Absent Rupture of Membranes: Denies Vaginal Bleeding: None Vaginal Discharge: Denies Abdominal Trauma: Not Applicable Patient Complaints: None Time Provider Notified: 11/27/2016 11:18 Provider Notified: DR. PAZ Initial Plan: EFM x2, 24 HOUR URINE SENT TO LAB, SERIAL BP'S, UA Datetime: 11/27/2016 11:02 Stage of : OB Triage Assessment Type: Triage Maternal Assessment Level of Consciousness: Fully Conscious Headache: Denies Blurred Vision: No Respiratory Effort: Unlabored; Regular Rhythm; Equal Expansion Breath Sounds, Left: Clear and Equal Breath Sounds, Right: Clear and Equal Nausea/Vomiting: Denies RUQ Epigastric Pain: Denies Facial Edema: None Temperature Route: Oral Fall Risk Assessment History of Falling: (0) No Secondary Diagnosis: (0) No Ambulatory Aid: (0) Bedrest/Nurse Assist IV Therapy: (0) No Gait: (0) Normal/Bedrest/Immobile Mental Status: (0) Oriented to Own Ability Fall Score: 0 Fall Risk Score Definition: No Risk: No action required Pain Assessment Pain Scale: 0 Pain Presence: None/Denies Pain Type: N/A Datetime: 11/25/2016 20:01 Stage of : OB Triage Datetime: 11/25/2016 19:33 Fall Score: 0 Fall Risk Score Definition: No Risk: No action required Datetime: 11/25/2016 18:38 EGA: 38.3 Datetime: 11/25/2016 17:30 Fall Score: 0 Fall Risk Score Definition: No Risk: No action required Datetime: 11/19/2016 16:20 Fall Score: 0 Fall Risk Score Definition: No Risk: No action required Datetime: 11/19/2016 16:06 EGA: 37.4 Datetime: 11/17/2016 22:38 EGA: 37.2 Datetime: 11/17/2016 22:30 Fall Score: 0 Fall Risk Score Definition: No Risk: No action required Datetime: 09/22/2016 11:40 EGA: 29.2 Datetime: 09/22/2016 11:01 EGA: 29.2 Fall Score: 0 Fall Risk Score Definition: No Risk: No action required
[2016-11-27] MEDS: LACTATED RINGER'S 1,000 ML IV SCH ×2 (14:50→22:08)
[2016-11-27 15:25] LABS: ADD SCAN DIFF NO
[2016-11-27 15:26] LABS: BASOPHILS % 0.2 % (0.0-2.0); EOSINOPHILS # 0.1 10^3/ul (0.0-0.5); EOSINOPHILS % 1.4 % (0.0-7.0); HEMATOCRIT 35.5 % (37.0-47.0); HEMOGLOBIN 12.5 g/dl (12.0-16.0); LYMPHOCYTES # 2.3 10^3/ul (0.8-2.9); LYMPHOCYTES % 23.1 % (15.0-51.0); MEAN CORPUSCULAR HEMOGLOBIN 30.2 pg (29.0-33.0); MEAN CORPUSCULAR HGB CONC 35.2 g/dl (32.0-37.0); MEAN CORPUSCULAR VOLUME 85.7 fl (82.0-101.0); MEAN PLATELET VOLUME 10.1 fl (7.4-10.4); MONOCYTE # 0.6 10^3/ul (0.3-0.9); MONOCYTES % 6.5 % (0.0-11.0); NEUTROPHIL # 6.7 10^3/ul (1.6-7.5); PLATELET COUNT 270 10^3/UL (140-415); RED BLOOD COUNT 4.14 10^6/ul (4.20-5.40); RED CELL DISTRIBUTION WIDTH 13.2 % (11.5-14.5); WHITE BLOOD COUNT 9.8 10^3/ul (4.8-10.8)
[2016-11-27 15:36] LABS: ALBUMIN 3.3 g/dl (3.3-4.9); POTASSIUM 3.7 mmol/L (3.5-5.1)
[2016-11-27 15:37] LABS: INR 0.9; PARTIAL THROMBOPLASTIN TIME 25.8 Sec (25.0-35.0); PROTIME 12.1 Sec (12.2-14.2); PT RATIO 0.9
[2016-11-27 15:38] LABS: CREATININE 0.47 mg/dl (0.44-1.00)
[2016-11-27 15:39] LABS: ALBUMIN/GLOBULIN RATIO 0.91; BILIRUBIN,INDIRECT 0.5 mg/dl (0-1.1); BILIRUBIN,TOTAL 0.5 mg/dl (0.2-1.3); TOTAL PROTEIN 6.9 g/dl (6.1-8.1); URIC ACID 4.9 mg/dl (3.1-7.9)
[2016-11-27 15:40] LABS: CALCIUM 9.5 mg/dl (8.4-10.2)
[2016-11-27] MEDS ORDERED: ALBUTEROL 18 GM INHALER INH PRN (17:00)
[2016-11-27] MEDS ORDERED: LACTATED RINGER'S 1,000 ML IV PRN (20:00)
[2016-11-28] VITALS (7 sets, daily range): BP systolic 126–141; BP diastolic 62–82; PULSE 83–127; RESP 19–20
[2016-11-28] MEDS ORDERED: FENTAnyl 2MCG/ML-ROPIV 0.2% 100 ML ONE (00:59)
[2016-11-28] MEDS: LACTATED RINGER'S 1,000 ML IV SCH ×2 (03:30→10:59)
[2016-11-28] MEDS ORDERED: ONDANSETRON 4 MG INJ IV PRN ×2 (08:00→17:30)
[2016-11-28] MEDS ORDERED: DIPHENHYDRAMINE 50 MG INJ IV PRN (08:00)
[2016-11-28] MEDS ORDERED: FENTAnyl 2MCG/ML-ROPIV 0.2% 100 ML BAG EPI SCH (08:00)
[2016-11-28] MEDS ORDERED: NALOXONE (0.4 MG/ML) INJ IV PRN (08:00)
[2016-11-28] MEDS ORDERED: MISOPROSTOL 200 MCG TAB ONE ×2 (12:15)
[2016-11-28] MEDS: OXYTOCIN 30 UNITS/LR 500 ML IV SCH ×4 (12:18→21:04)
--- NOTE | 2016-11-28 12:26 | LDN ---
Date/Time of Note Date/Time of Note DATE: 11/28/16 TIME: 12:21 Delivery Summary Normal spontaneous vaginal delivery of a baby girl from OA position shoulders delivered without any difficulties rest of the baby's body followed cord was clamped after stopped pulsation, placenta spontaneous expulsion inspected complete, estimated blood loss 250-300 cc Weeks of Gestation 38 weeks 5 days in active labor Placenta Delivered: Spontaneously Meconium: none Episiotomy: No Anesthesia type: Epidural Estimated blood loss: 300 Sponge & Needle done & correct: Yes All needle counts correct: Yes Any foreign bodies felt in the: No Problems: Infant Delivery Information Sex Sex: female Apgars 1 Minute: 9 5 Minute: 9 Suctioning Nose & mouth suctioned at juan alberto: Yes Delee suction performed: No Umbilical Cord Umbilical cord with: 3 Vessels Cord presentations: no nuchal cord Cord Blood was obtained: Yes Mother & Baby Disposition Disposition Baby and mother both had satisfactory condition after the delivery. Mom & Baby to Maternity; Good: Yes Baby to NICU: No JAVY MAYS MD Nov 28, 2016 12:26
[2016-11-28] MEDS ORDERED: AMPICILLIN 2 GM/NS (PMX) 100 ML ONE (12:30)
[2016-11-28] MEDS: AMPICILLIN 2 GM/NS (PMX) 100 ML IVPB SCH ×2 (12:36→18:16)
--- NOTE | 2016-11-28 12:38 | HP ---
Date/Time of Note Date/Time of Note DATE: 11/28/16 TIME: 12:27 OB - History Hx of Present Free Text/Dictation This is 20 years old female 1 para 0 admitted at 38 weeks and 5 days to [facility] for induction of labor due to suspected preeclampsia with elevated blood pressure and over 500 mg of protein in the 24 hours urine, pelvic examination on admission ,cervix 1-1/2 cm 70% effaced vertex at -3 station plan of Cervidil induction was discussed with the patient and she agreed to undergo induction( for -induced hypertension) Chief Complaint: at 38 weeks 5 days her complicated with -induc Estimated Due Date: Dec 06, 2016 : 1 Para: 0 Care: Good Care Ultrasounds: Normal mid trimester US Medical Complications: None Past Family/Social History * Past Medical, Surgical, Family and Obstetric Histories reviewed from chart. Rubella: immune RPR/VDRL: Negative GBS Status: Negative HBsAG: Negative OB Admission Exam Vital Signs Vital Signs Vital Signs Date Time Temp Pulse Resp B/P Pulse Ox O2 Delivery O2 Flow Rate FiO2 11/27/16 11:11 98.4 81 18 125/72 Room Air Physical Exam HEENT: WNL Heart: Rhythm Normal Lungs: Clear, Equal Extremities: Edema Reflexes: Normal Cervical Dilatation: 2cm Effacement: 75% Station: -3 Membranes: Intact Heart Rate: 130's Accelerations: Accelerations Present Decelerations: No Decelerations Varibility: Moderate Contractions on Admission: None Last 72 hours Lab Results CBC & BMP 11/27/16 11:40 11/27/16 14:45 Liver Function Test 11/27/16 14:45 Alanine Aminotransferase (ALT/SGPT) 29 Albumin 3.3 Alkaline Phosphatase 175 H Aspartate Amino Transf (AST/SGOT) 32 Direct Bilirubin 0.00 Total Protein 6.9 OB Assessment/Plan Reason for admission: induction of labor, other (-induced hypertension ) Plan: Induction Induction Method: per Misoprostol Protocol JAVY MAYS MD Nov 28, 2016 12:38
[2016-11-28] MEDS ORDERED: CA GLUCONATE (GM) 10% 10ML INJ IV PRN (14:00)
[2016-11-28] MEDS ORDERED: MAGNESIUM SULFATE 4 GM/100 ML 100 ML IV SCH (14:00)
[2016-11-28] MEDS: MAGNESIUM SULFATE 20 GM/500 ML 500 ML IV SCH (14:27)
[2016-11-28] MEDS ORDERED: LANOLIN 7 GM TUBE TOP PRN (17:30)
[2016-11-28] MEDS ORDERED: WITCH HAZEL/GLYCERIN PAD PR PRN (17:30)
[2016-11-28] MEDS ORDERED: BENZOCAINE 20% 56 ML SPRAY TOP PRN (17:30)
[2016-11-28] MEDS ORDERED: DIBUCAINE 1% 30 GM OINT PR PRN (17:30)
[2016-11-28] MEDS ORDERED: ACETAMINOPHEN/CODEINE #3 TAB PO PRN ×2 (17:30)
[2016-11-28] MEDS ORDERED: ACETAMINOPHEN 325 MG TAB PO PRN (17:30)
[2016-11-28] MEDS ORDERED: OXYCODONE/ASPIRIN (4.88/325) TAB PO PRN ×2 (17:30)
[2016-11-28] MEDS: IBUPROFEN 600 MG TAB PO SCH ×2 (18:00→18:16)
[2016-11-28] MEDS: SENNA/DOCUSATE NA (8.6MG/50MG) TAB PO SCH (21:22)
[2016-11-29] VITALS (14 sets, daily range): BP systolic 111–143; BP diastolic 61–83; PULSE 82–110; RESP 14–20
[2016-11-29] MEDS: IBUPROFEN 600 MG TAB PO SCH ×5 (00:21→23:44)
[2016-11-29] MEDS: AMPICILLIN 2 GM/NS (PMX) 100 ML IVPB SCH ×3 (00:21→11:44)
[2016-11-29] MEDS: OXYTOCIN 30 UNITS/LR 500 ML IV SCH (00:23)
[2016-11-29] MEDS: MAGNESIUM SULFATE 20 GM/500 ML 500 ML IV SCH ×2 (00:25→10:37)
[2016-11-29 07:55] LABS: ADD SCAN DIFF NO
[2016-11-29 07:58] LABS: BASOPHILS % 0.1 % (0.0-2.0); EOSINOPHILS # 0.3 10^3/ul (0.0-0.5); EOSINOPHILS % 1.8 % (0.0-7.0); HEMATOCRIT 29.9 % (37.0-47.0); HEMOGLOBIN 10.5 g/dl (12.0-16.0); LYMPHOCYTES # 2.2 10^3/ul (0.8-2.9); LYMPHOCYTES % 16.1 % (15.0-51.0); MEAN CORPUSCULAR HEMOGLOBIN 30.5 pg (29.0-33.0); MEAN CORPUSCULAR HGB CONC 35.1 g/dl (32.0-37.0); MEAN CORPUSCULAR VOLUME 86.9 fl (82.0-101.0); MEAN PLATELET VOLUME 9.7 fl (7.4-10.4); MONOCYTE # 0.9 10^3/ul (0.3-0.9); MONOCYTES % 6.4 % (0.0-11.0); NEUTROPHIL # 10.4 10^3/ul (1.6-7.5); NEUTROPHILS % 75.1 % (39.0-77.0); PLATELET COUNT 239 10^3/UL (140-415); RED BLOOD COUNT 3.44 10^6/ul (4.20-5.40); RED CELL DISTRIBUTION WIDTH 13.6 % (11.5-14.5); WHITE BLOOD COUNT 13.9 10^3/ul (4.8-10.8)
--- NOTE | 2016-11-29 09:22 | PN ---
Date/Time of Note Date/Time of Note DATE: 11/29/16 TIME: 09:21 OB Subjective Subjective Subjective day 1 Afebrile abdomen soft uterus firm lochia normal extremity normal ambulation recommended plan of possible discharge a.m. discussed Laboratory Tests Test 11/28/16 20:37 11/29/16 02:05 11/29/16 07:45 Magnesium Level 4.2mg/dl 4.5mg/dl 4.9mg/dl White Blood Count 13.910^3/ul Red Blood Count 3.4410^6/ul Hemoglobin 10.5g/dl Hematocrit 29.9% Mean Corpuscular Volume 86.9fl Mean Corpuscular Hemoglobin 30.5pg Mean Corpuscular Hemoglobin Concent 35.1g/dl Red Cell Distribution Width 13.6% Platelet Count 11139^3/UL Mean Platelet Volume 9.7fl Neutrophils % 75.1% Lymphocytes % 16.1% Monocytes % 6.4% Eosinophils % 1.8% Basophils % 0.1% Nucleated Red Blood Cells % 0.0/100WBC Neutrophils # 10.410^3/ul Lymphocytes # 2.210^3/ul Monocytes # 0.910^3/ul Eosinophils # 0.310^3/ul Basophils # 0.010^3/ul Nucleated Red Blood Cells # 0.010^3/ul Current Medications Medications (Trade) Dose Ordered Sig/Yen Route PRN Reason Start Time Stop Time Status Last Admin Dose Admin Lactated Ringer's (Lr) 1,000 ml @ 125 mls/hr Q8H IV 11/27/16 13:58 11/28/16 17:09 DC 11/28/16 10:59 Dinoprostone (Cervidil Vaginal Supp) 10 mg ONCE ONCE VAG 11/27/16 14:00 11/27/16 14:10 DC 11/27/16 16:06 Butorphanol Tartrate (Stadol) 2 mg Q2H PRN IV PAIN 11/27/16 14:00 11/28/16 17:09 DC Lidocaine 30 ml 30 ml ONCE PRN INJ EPISIOTOMY/TEARING 11/27/16 14:00 11/28/16 17:09 DC Oxytocin/Lactated Ringer's 500 ml @ 125 mls/hr ONCE -MAY REPEAT X1 IV 11/27/16 14:00 11/28/16 17:09 DC 11/28/16 12:22 Oxytocin/Lactated Ringer's 500 ml @ 125 mls/hr ONCE IV 11/27/16 14:00 11/28/16 17:09 DC 11/28/16 12:54 Ibuprofen 600 mg 600 mg ONCE PRN PO Mild Pain (Pain Score 1-3) 11/27/16 14:00 11/28/16 17:09 DC 11/28/16 13:26 Lactated Ringer's 1,000 ml @ 2,000 mls/hr Q30M PRN IV PRE-EPIDURAL BOLUS 11/27/16 20:00 11/28/16 17:10 DC Oxytocin/Lactated Ringer's 500 ml @ 0 mls/hr ONCE PRN IV For Hemorrhage Management 11/27/16 14:00 11/28/16 17:10 DC Methylergonovine Maleate (Methergine) 0.2 mg ONCE PRN IM VAGINAL BLEEDING 11/27/16 14:00 11/28/16 17:10 DC Carboprost Tromethamine (Hemabate) 250 mcg ONCE PRN IM VAGINAL BLEEDING 11/27/16 14:00 11/28/16 17:10 DC Misoprostol (Cytotec) 1,000 mcg ONCE PRN GA VAGINAL BLEEDING 11/27/16 14:00 11/27/16 14:28 DC Dinoprostone (Cervidil Vaginal Supp) 10 mg ONCE ONCE VAG 11/27/16 14:30 11/27/16 14:30 DC Albuterol 2 puff 2 puff Q4H RESP THERAPY PRN INH SHORTNESS OF BREATH 11/27/16 17:00 11/28/16 17:09 DC Fentanyl/ Ropivacaine 100 ml @ ud STK-MED ONCE .ROUTE 11/28/16 00:59 11/28/16 01:00 DC Naloxone HCl (Narcan) 0.1 mg Q2M PRN IV FOR RESP RATE 8 OR LESS 11/28/16 08:00 11/28/16 17:09 DC Diphenhydramine HCl (Benadryl) 25 mg Q6H PRN IV ITCHING 11/28/16 08:00 11/28/16 17:09 DC Ondansetron HCl (Zofran Inj) 4 mg Q6H PRN IV NAUSEA AND/OR VOMITING 11/28/16 08:00 11/28/16 17:09 DC Fentanyl/ Ropivacaine 100 ml EPIDURAL INFUSION EPI 11/28/16 08:00 11/28/16 17:09 DC 11/28/16 07:53 Misoprostol (Cytotec) 200 mcg STK-MED ONCE .ROUTE 11/28/16 12:15 11/28/16 12:16 DC Misoprostol 200 mcg 200 mcg STK-MED ONCE .ROUTE 11/28/16 12:15 11/28/16 12:16 DC Ampicillin 100 ml @ 100 mls/hr Q6 IVPB 11/28/16 12:30 11/29/16 05:44 Ampicillin 100 ml @ ud STK-MED ONCE .ROUTE 11/28/16 12:30 11/28/16 12:31 DC Magnesium Sulfate 100 ml @ 200 mls/hr ONCE IV 11/28/16 14:00 11/28/16 14:29 DC 11/28/16 14:03 Magnesium Sulfate (Magnesium Sulfate 20 Gm/500 ml) 500 ml @ 50 mls/hr Q10H IV 11/28/16 14:30 11/29/16 00:25 Calcium Gluconate 1 gm 1 gm ONCE PRN IV FOR MAGNESIUM TOXICITY 11/28/16 14:00 Oxytocin/Lactated Ringer's 500 ml @ 125 mls/hr Q4H IV 11/28/16 17:04 11/29/16 01:03 DC 11/29/16 00:23 Ibuprofen (Motrin) 600 mg Q6 PO 11/28/16 17:30 11/29/16 05:44 Acetaminophen (Tylenol Tab) 650 mg Q4H PRN PO PAIN LEVEL 1-5 11/28/16 17:30 Acetaminophen/ Codeine Phosphate (Tylenol No.3) 1 tab Q4H PRN PO PAIN LEVEL 1-5 11/28/16 17:30 Acetaminophen/ Codeine Phosphate (Tylenol No.3) 2 tab Q4H PRN PO PAIN LEVEL 6-10 11/28/16 17:30 Oxycodone/Aspirin (Percodan) 1 tab Q3H PRN PO PAIN LEVEL 1-5 11/28/16 17:30 Oxycodone/Aspirin (Percodan) 2 tab Q3H PRN PO PAIN LEVEL 6-10 11/28/16 17:30 Ondansetron HCl (Zofran Inj) 4 mg Q6H PRN IV NAUSEA AND/OR VOMITING 11/28/16 17:30 Senna/Docusate Sodium (Senokot-S) 1 tab BID PO 11/28/16 21:00 11/28/16 21:22 [place]/ Glycerin (Tucks Pads) 1 pad BEDSIDE MEDICATION PRN GA HEMORRHOID/EPISIOTMY PAIN 11/28/16 17:30 11/28/16 21:23 Benzocaine (Dermoplast [place]) 1 spray BEDSIDE MEDICATION PRN TOP HEMORRHOID/EPISIOTMY PAIN 11/28/16 17:30 11/28/16 21:23 Dibucaine (Nupercainal) 1 applic BEDSIDE MEDICATION PRN GA HEMORRHOID/EPISIOTMY PAIN 11/28/16 17:30 Lanolin (Cgk-P-Aexvrv) 1 applic BEDSIDE MEDICATION PRN TOP BEDSIDE FOR NANCY TO NIPPLES 11/28/16 17:30 Measles/Mumps/ Rubella Vaccine Live (Mmr Ii Vaccine) 0.5 ml ONCE ONCE SC* 11/30/16 09:00 11/30/16 09:01 JAVY MAYS MD Nov 29, 2016 09:22
[2016-11-29] MEDS: SENNA/DOCUSATE NA (8.6MG/50MG) TAB PO SCH ×2 (10:35→20:40)
[2016-11-30 04:00] VITALS: BP 137/42; PULSE 82; RESP 18
[2016-11-30] MEDS: IBUPROFEN 600 MG TAB PO SCH ×2 (06:14→12:00)
[2016-11-30 08:55] VITALS: BP 141/90; PULSE 88; RESP 20
[2016-11-30] MEDS ORDERED: MEASLES,MUMPS,RUBELLA VACCINE INJ SC* ONE (09:00)
[2016-11-30] MEDS: SENNA/DOCUSATE NA (8.6MG/50MG) TAB PO SCH (09:35)
[2016-11-30 09:45] VITALS: BP 135/88; PULSE 80
--- NOTE | 2016-11-30 14:18 | DS ---
Date/Time of Note Date/Time of Note DATE: 11/30/16 TIME: 14:16 Discharge Summary Admission/Discharge Info Admit Date/Time Nov 27, 2016 at 13:45 Discharge Date/Time November 30, 2016 Final Diagnosis Day 2 post normal vaginal delivery Patient Condition: Good Procedures Normal spontaneous vaginal delivery Hx of Present Illness Term Hospital Course Satisfactory Home Meds Reported Medications Multivit/Min/Fol Ac/Iron/Pren* ( S*) 1 Tab Tab, 1 TAB PO DAILY, TAB 09/22/16 Follow-up Plan Appointment clinic in 2 weeks for check JAVY MAYS MD Nov 30, 2016 14:18
== END 2016-11-30 17:48 | disposition home or self-care (01) | DRG 775 ==
LOC: OBT 10:34 → L-D 10:35 → OBT 13:45 → L-D 13:45 → PP1 11-28 17:03
PROVIDERS: ADMIT Obstetrics & Gynecology; ATTEND Obstetrics & Gynecology
PROC: 10E0XZZ Delivery of Products of Conception, External Approach (ICD-10-PCS; principal; 2016-11-28)
DX: O99.214 Obesity complicating childbirth (principal); Z68.42 Body mass index [BMI] 45.0-49.9, adult; E66.9 Obesity, unspecified; O16.4 Unspecified maternal hypertension, complicating childbirth; O14.94 Unspecified pre-eclampsia, complicating childbirth; Z3A.38 38 weeks gestation of pregnancy; Z37.0 Single live birth
CPT/HCPCS: 36415; 80053; 81001; 81003; 82565; 82575; 83735; 84156; 84560; 85025; 85610; 85730; 86592; 86900; 86901; G0463; J0290; J2590; J3010; J3475; J7120

== ENCOUNTER 2018-05-14 13:10 | Emergency (ER) | END 2018-05-14 16:50 | disposition home or self-care (01) ==

== ENCOUNTER 2019-01-11 12:21 | Emergency (ER) | payer OTHER ==
[~2019-01-11] VITALS: Ht 152.4 cm; Wt 90.0 kg
[~2019-01-11 12:21] MED LIST changes: +FAMO-96 PO
[2019-01-11 12:24] VITALS: Ht 152.4 cm; Wt 90.0 kg
[2019-01-11] MEDS ORDERED: DEXAMETHASONE 10 MG/ML 1 ML INJ IV STA (12:34)
[2019-01-11] MEDS ORDERED: SOD CHLORIDE 0.9% 500 ML IV STA (12:34)
[2019-01-11] MEDS ORDERED: ALBUTEROL 0.5% (NEB) 2.5 MG/0.5 ML AMP INH STA (12:34)
[2019-01-11] MEDS ORDERED: IPRATROPIUM (NEB) 0.5 MG/2.5 ML AMP INH STA (12:34)
[2019-01-11] MEDS ORDERED: MAGNESIUM SULFATE 2 GM/50 ML 50 ML IVPB STA (12:34)
[2019-01-11] MEDS ORDERED: ACETAMINOPHEN 500 MG TAB PO STA (12:41)
[2019-01-11] MEDS ORDERED: KETOROLAC 15 MG INJ IV STA (12:41)
--- NOTE | 2019-01-11 13:02 | ERD ---
ER Documentation Chief Complaint Chief Complaint asthma attack HPI This is a 23-year-old female with a history of asthma, no prior hospitalizations or intubation related to her asthma who presents to the emergency room with 24 hours of symptoms including fevers, cough, congestion. She describes chest discomfort with breathing that is nonpleuritic and associated with a semi- productive cough. Patient states this feels like her asthma but is more severe than asthma exacerbations in the past. Patient denies any back pain or abdo cristal symptoms. ROS All systems reviewed and are negative except as per history of present illness. Medications Home Meds Active Scripts Ibuprofen* (Motrin*) 800 Mg Tab, 800 MG PO Q6H PRN for PAIN AND OR ELEVATED TEMP, #30 TAB Prov:ANABELA SETHI MD 01/11/19 Albuterol Sulfate* (Ventolin HFA*) 18 Gm Hfa.aer.ad, 2 PUFF INHALATION Q4H, #1 INHALER Prov:ANABELA SETHI MD 01/11/19 Reported Medications Albuterol Sulfate* (Ventolin HFA*) 18 Gm Hfa.aer.ad, 2 PUFF INHALATION Q4H, #1 INHALER 01/11/19 Discontinued Reported Medications Multivit/Min/Fol Ac/Iron/Pren* ( S*) 1 Tab Tab, 1 TAB PO DAILY, TAB 09/22/16 Discontinued Scripts Famotidine* (Pepcid*) 20 Mg Tablet, 20 MG PO BID for 30 Days, TAB Prov:JUANA BARRIENTOS PA-C 05/14/18 Allergies Allergies: Coded Allergies: No Known Allergy (Unverified , 01/11/19) PMhx/Soc History of Surgery: No Anesthesia Reaction: No Hx Neurological Disorder: No Hx Respiratory Disorders: Yes (asthma) Hx Cardiac Disorders: No Hx Psychiatric Problems: No Hx Miscellaneous Medical Probl: No Hx Alcohol Use: No Hx Substance Use: No Hx Tobacco Use: No FmHx Family History: No diabetes Physical Exam Vitals Vital Signs Date Temp Pulse Resp B/P (MAP) Pulse Ox O2 O2 Flow FiO2 Time Delivery Rate 01/11/19 100.0 127 22 126/74 100 10.0 16:48 (91) 01/11/19 100.2 139 15:30 01/11/19 150 14:30 01/11/19 100.1 148 26 149/88 100 10.0 13:30 (108) 01/11/19 117 20 94 21 13:03 01/11/19 101.3 148 34 160/103 91 12:24 (122) Physical Exam General: Well developed, well nourished, no acute distress, talking in sethi sentences Head: Normocephalic, atraumatic. Eyes: Pupils equally reactive, EOM intact ENT: Moist mucous membranes Neck: Supple, no lymphadenopathy Respiratory: Wheezing diffusely bilaterally with moderate aeration, subtle increased work of breathing Cardiovascular: RRR, no murmurs, rubs, or gallops Abdominal: Soft, non-tender, non-distended, no peritoneal signs : Deferred MSK: No edema, no unilateral swelling, 5/5 strength Neurologic: Alert and oriented, moving all extremities, normal speech, no focal weakness, no cerebellar signs Skin: No rash Psych: Normal mood Result Diagram: 01/11/19 1240 01/11/19 1240 Results 24 hrs Laboratory Tests Test 01/11/19 12:40 White Blood Count 13.6 10^3/ul Red Blood Count 4.89 10^6/ul Hemoglobin 14.6 g/dl Hematocrit 41.4 % Mean Corpuscular Volume 84.7 fl Mean Corpuscular Hemoglobin 29.9 pg Mean Corpuscular Hemoglobin Concent 35.3 g/dl Red Cell Distribution Width 12.4 % Platelet Count 331 10^3/UL Mean Platelet Volume 9.2 fl Immature Granulocytes % 0.300 % Neutrophils % 84.4 % Lymphocytes % 6.6 % Monocytes % 4.3 % Eosinophils % 4.1 % Basophils % 0.3 % Nucleated Red Blood Cells % 0.0 /100WBC Immature Granulocytes # 0.040 10^3/ul Neutrophils # 11.5 10^3/ul Lymphocytes # 0.9 10^3/ul Monocytes # 0.6 10^3/ul Eosinophils # 0.6 10^3/ul Basophils # 0.0 10^3/ul Nucleated Red Blood Cells # 0.0 10^3/ul Sodium Level 140 mmol/L Potassium Level 3.6 mmol/L Chloride Level 107 mmol/L Carbon Dioxide Level 22 mmol/L Anion Gap 11 Blood Urea Nitrogen 8 mg/dl Creatinine 0.54 mg/dl Est Glomerular Filtrat Rate mL/min > 60 mL/min Glucose Level 126 mg/dl Calcium Level 9.9 mg/dl Current Medications Medications Dose Sig/Yen Start Time Status Last (Trade) Ordered Route PRN Stop Time Admin Dose Reason Admin Sodium 500 ml @ Q1H STAT 01/11/19 DC 01/11/19 Chloride 500 mls/hr IV 12:34 13:08 01/11/19 13:33 Albuterol 15 mg ONCE STAT 01/11/19 DC 01/11/19 (Proventil INH 12:34 13:00 0.5% (Neb)) 01/11/19 12:36 Ipratropium 2 mg ONCE STAT 01/11/19 DC 01/11/19 Homeland INH 12:34 12:59 (Atrovent 01/11/19 12:36 0.02% (Neb)) 10 mg ONCE STAT 01/11/19 DC 01/11/19 Dexamethasone IV 12:34 13:08 (Decadron) 01/11/19 12:36 Magnesium 50 ml @ 25 ONCE STAT 01/11/19 DC 01/11/19 Sulfate mls/hr IVPB 12:34 13:08 01/11/19 14:33 1,000 mg ONCE STAT 01/11/19 DC 01/11/19 Acetaminophen PO 12:41 13:08 (Tylenol 01/11/19 12:42 Tab) Ketorolac 15 mg ONCE STAT 01/11/19 DC Tromethamine IV 12:41 (Toradol) 01/11/19 12:42 Sodium 1,000 ml @ Q1H STAT 01/11/19 DC 01/11/19 Chloride 1,000 mls/hr IV 13:49 14:01 01/11/19 14:48 Sodium 1,000 ml @ Q1H STAT 01/11/19 DC Chloride 1,000 mls/hr IV 15:20 01/11/19 16:19 Procedures/MDM EKG, MONITORS, & DIAGNOSTIC IMAGING: Chest x-ray: Chest x-ray: I reviewed and interpreted a 1 view of the chest Mediastinum: No enlargement Cardiac silhouette: No cardiomegaly Airspace: Clear lung edwards bilaterally without evidence of pneumothorax Bones: No evidence of fracture LAB INTERPRETATION: I reviewed the laboratory testing and it shows slight leukocytosis MEDICAL DECISION MAKING: Patient's presentation is consistent with moderate to severe asthma exacerbation likely secondary to viral upper respiratory tract infection. However given the patient's fever and respiratory symptoms I cannot rule out pneumonia. X-ray would be indicated. Patient will benefit from breathing treatment, steroids, magnesium. The patient is otherwise well-appearing in the emergency room setting and I do believe she can be improved with interventions and likely discharge. She is young and otherwise healthy and again well-appearing and well-hydrated. ER COURSE: * Patient given hour-long breathing treatment, magnesium, Decadron * The patient received breathing treatment. She had persistent tachycardia that gradually improved with IV fluid resuscitation. This is more likely related to the patient's fever and medication regimen rather than underlying severe dehydration. Her blood pressures always remained stable. She has a dramatic subjective and objective improvement. Her lung exam is reassuring. * The patient's heart rate is still in the 120 range. However the patient has been up walking around with no significant shortness of breath. She is young and healthy. This is consistent with a sinus tachycardia. I discussed further observation versus discharge and the patient feels comfortable with discharge. CONSULTATION: None DISPOSITION PLAN: The patient does not have an identifiable emergent medical condition that warrants inpatient hospitalization at this time. The patient is deemed safe for discharge with outpatient follow-up. We discussed follow up with the patient's primary care doctor within 24 to 48 hours as needed. We also discussed return to the emergency room for worsening symptoms or worsening condition. Outpatient referral: None required Discharge Medications: Albuterol, Motrin Departure Diagnosis: Primary Impression: Asthma with acute exacerbation Asthma severity: moderate Asthma persistence: unspecified Qualified Codes: J45.901 - Unspecified asthma with (acute) exacerbation Additional Impression: URI (upper respiratory infection) URI type: unspecified viral URI Qualified Codes: J06.9 - Acute upper respiratory infection, unspecified Condition: Stable ANABELA SETHI MD January 11, 2019 13:02
[2019-01-11] MEDS ORDERED: ALBU18HF INHALATION ×2 (13:17→13:31)
[2019-01-11] MEDS ORDERED: IBUP800T48 PO (13:31)
[2019-01-11] MEDS ORDERED: SOD CHLORIDE 0.9% 1,000 ML IV STA ×2 (13:49→15:20)
[2019-01-11 17:23] VITALS: BP 118/72; PULSE 116; RESP 22
== END 2019-01-11 17:20 | disposition home or self-care (01) ==
LOC: E/R 12:21
DX: J45.901 Unspecified asthma with (acute) exacerbation (principal); J06.9 Acute upper respiratory infection, unspecified
CPT/HCPCS: 71045; 80048; 85025; 94644; J1100; J3475; J7030; J7040; 96374; 96375